=== PATIENT | male | born 1965 | race Caucasian/White ===

== ENCOUNTER 2023-08-06 07:15 | Outpatient (CLI) | payer BC, SELFPAY ==
--- NOTE | ~2023-08-06 | XR_ITS ---
EXAMINATION: XR foot LT min 3V DATE: 08/06/2023 07:47 INDICATION: Left foot pain. TECHNIQUE: 4 views of left foot were obtained. COMPARISON: None. FINDINGS: There are changes of bunionectomy with 2 screws in first metatarsal and staple in first pro ximal phalanx. There is a screw in head of second metatarsal. No fracture. There is moderate osteoart hritis of first metatarsophalangeal joint and mild osteoarthritis of second metatarsophalangeal joint and some of the interphalangeal joints and midfoot joints. 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 There is an enthesophyte at plantar aspect of calcaneal tuberosity. IMPRESSION: 1. Polyarticular osteoarthritis. Reviewed, dictated and finalized at location A.
--- NOTE | ~2023-08-06 | XR_ITS ---
EXAMINATION: XR hand RT min 3V DATE: 08/06/2023 07:47 INDICATION: Right hand pain. TECHNIQUE: 3 views of right hand were obtained. COMPARISON: None. FINDINGS: Bone alignment is normal. No fracture. There is severe osteoarthritis of first carpometacar pal joint and mild osteoarthritis of many of the metacarpophalangeal joints and interphalangeal joint s. IMPRESSION: 1. Polyarticular osteoarthritis. Reviewed, dictated and finalized at location A.
== END 2023-08-06 07:16 ==
LOC: MICIMG 07:22
PROVIDERS: PCP Family Medicine; Visit Provider Family Medicine
DX: M19.041 Primary osteoarthritis, right hand (principal); M19.072 Primary osteoarthritis, left ankle and foot; R53.83 Other fatigue
CPT/HCPCS: 73130; 73630